=== PATIENT | male | born 1995 | race Caucasian/White ===

== ENCOUNTER 2019-02-01 12:27 | Emergency (ER) | payer OTHER ==
[~2019-02-01] VITALS: Ht 180.3 cm; Wt 102.1 kg
--- NOTE | 2019-02-01 12:30 | NUR ---
PT TO ER BED 07
[2019-02-01 12:34] VITALS: BP 179/80
--- NOTE | 2019-02-01 12:41 | NUR ---
23/M presents to ED with complaints of left sided abdominal pain for the past 1 week. Patient describes pain as pressure, intermittent, 2/10, non radiating accompanied by diarrhea. Pt states he has also been having diarrhea x1 week. Abdomen is soft, active bowel sounds. Denies N/V/D.
[2019-02-01 14:06] VITALS: BP 179/80
--- NOTE | 2019-02-01 14:07 | NUR ---
Patient discharged with v/s stable. Written and verbal after care instructions given and explained. Patient alert, oriented and verbalized understanding of instructions. Ambulatory with to home. All questions addressed prior to discharge. ID band removed. Patient advised to follow up with PMD. Rx of miralax given. Patient educated on indication of medication including possible reaction and side effects. Opportunity to ask questions provided and answered.
== END 2019-02-01 14:07 | disposition home or self-care (01) ==
LOC: MED 12:27
DX: K59.00 Constipation, unspecified (principal); I10 Essential (primary) hypertension
CPT/HCPCS: 74018; 99283

== ENCOUNTER 2019-02-06 18:35 | Emergency (ER) | payer OTHER ==
[~2019-02-06] VITALS: Ht 180.3 cm; Wt 102.1 kg
[2019-02-06 18:50] VITALS: BP 121/86
--- NOTE | 2019-02-06 18:57 | NUR ---
TRIAGE COMPLETE. VSS. OKAY TO WAIT IN LOBBY FOR BED IN ED. EKG READ BY ER .
--- NOTE | 2019-02-06 21:50 | NUR ---
PT AMBULATED TO BED 03.
--- NOTE | 2019-02-06 21:55 | NUR ---
PT BIB FATHER W/ C/O CHEST WALL PAIN. 09/26 PAIN. RR EVEN, UNLABORED. DENIES SOB. DENIES COUGH AND CONGESTION. DENIES N/V/D. PT PT CALM IN BED ON CELLPHONE. MEDHX: DENIES ALLERGIES: DENIES
[2019-02-06] MEDS ORDERED: KETOROLAC 60 MG/2 ML VIAL IM ONE (22:40)
--- NOTE | 2019-02-06 23:03 | NUR ---
Patient discharged with v/s stable. Written and verbal after care instructions given and explained. Patient alert, oriented and verbalized understanding of instructions. Ambulatory with to home. All questions addressed prior to discharge. ID band removed. Patient advised to follow up with PMD. Rx of MOTRIN given. Patient educated on indication of medication including possible reaction and side effects. Opportunity to ask questions provided and answered.
[2019-02-06 23:05] VITALS: BP 121/86
== END 2019-02-06 23:03 | disposition home or self-care (01) ==
LOC: MED 18:35
DX: R07.89 Other chest pain (principal); R06.02 Shortness of breath
CPT/HCPCS: 71045; 96372; 99283; J1885; 93005